=== PATIENT | female | born 1970 | race Hispanic/Latino ===

== ENCOUNTER → 2025-10-01 | Outpatient (REF) | LOC: M LAB 10:46 | PROVIDERS: ATTEND Family Medicine | DX: Z02.1 Encounter for pre-employment examination (principal) ==

== ENCOUNTER → 2025-10-03 | Outpatient (REF) | LOC: M RAD 09:56 | PROVIDERS: ATTEND Family Medicine | DX: Z01.89 Encounter for other specified special examinations (principal) ==